=== PATIENT | female | born 1965 | race Caucasian/White ===

== ENCOUNTER 2017-09-13 17:46 | Outpatient (CLI) | payer BC ==
--- NOTE | 2017-09-13 18:30 | RAD ---
PA AND LATERAL CHEST: HISTORY: Cough and wheezing. FINDINGS: Heart size and mediastinum are within normal limits. Lungs appear clear of any infiltrates. Bilater al breast augmentations are noted. Arthritic changes of the spine are seen. IMPRESSION: No active intrathoracic disease. POS: [facility]
== END 2017-09-13 17:47 | disposition home or self-care (01) ==
LOC: SCSRAD 17:46
PROVIDERS: ATTEND Family Medicine
DX: J22 Unspecified acute lower respiratory infection (principal)
CPT/HCPCS: 71046